=== PATIENT | male | born 1975 | race Caucasian/White ===

== ENCOUNTER 2021-09-08 18:02 | Emergency (ER) | payer MEDICARE ==
[~2021-09-08] VITALS: Ht 170.2 cm; Wt 81.7 kg
[2021-09-08] MEDS ORDERED: MIRALAX119 GM PO (20:45)
== END 2021-09-08 20:58 | disposition home or self-care (01) ==
LOC: ED 18:02
DX: K59.00 Constipation, unspecified (principal); I10 Essential (primary) hypertension; E11.9 Type 2 diabetes mellitus without complications
CPT/HCPCS: 36415; 74177; 80053; 81001; 83690; 85025; 96375; 99284-25; J2270; J2405; J7030; Q9967